=== PATIENT | male | born 1995 | race Caucasian/White ===

== ENCOUNTER 2022-08-24 21:17 | Inpatient (IN) | payer MEDICAID ==
[~2022-08-24] VITALS: Ht 165.1 cm; Wt 71.4 kg
[2022-08-24 22:22] LABS: BASOPHILS % (AUTO) 0.5 % (0.0-2.0); EOSINOPHILS % (AUTO) 2.9 % (1.0-6.0); HEMATOCRIT 46.3 % (41-53); HEMOGLOBIN 16.1 g/dL (13.5-17.5); LYMPHOCYTES # (AUTO) 1.4 K/uL (1.0-4.8); LYMPHOCYTES % (AUTO) 37.7 % (22.0-44.0); MEAN CORPUSCULAR HEMOGLOBIN 32.5 pg (26.0-34.0); MEAN CORPUSCULAR HGB CONC 34.7 G/dL (31.0-37.0); MEAN CORPUSCULAR VOLUME 94 fL (80-100); MONOCYTES # (AUTO) 0.3 K/uL (0.1-1.0); MONOCYTES % (AUTO) 6.9 % (2.0-9.0); NEUTROPHILS # (AUTO) 1.9 K/uL (1.8-7.7); PLATELET COUNT (AUTO) 218 K/uL (150-450); RED BLOOD CELL COUNT(AUTO) 4.93 MIL/uL (4.50-5.90); RED CELL DISTRIBUTION WIDTH 12.5 % (11.5-14.5)
[2022-08-24] MEDS ORDERED: QUET200T PO (22:22)
[2022-08-24 22:25] LABS: ANION GAP 7 mmol/L (8-16); CALCIUM, TOTAL 9.3 mg/dL (8.8-10.5); CARBON DIOXIDE 28 mmol/L (22-29); CHLORIDE 103 mmol/L (98-107); GLUCOSE,RANDOM 118 mg/dL (70-110); POTASSIUM 3.3 mmol/L (3.5-5.1); SODIUM SERUM 138 mmol/L (136-145); UREA NITROGEN, BLOOD 10 mg/dL (7-18)
[2022-08-24 22:31] LABS: ALANINE AMINOTRANSFERASE 41 U/L (12-78); ALBUMIN 4.3 g/dL (3.4-5.0); ALKALINE PHOSPHATASE 138 U/L (46-116); ASPARTATE AMINOTRANSFERASE 20 U/L (15-37); BILIRUBIN,TOTAL 0.5 mg/dL (0.1-1.0); TOTAL PROTEIN, SERUM 7.7 g/dL (6.4-8.2)
[2022-08-24 22:32] LABS: GLOMERULAR FILTR. RATE CALC > 60 mL/min (>60)
[2022-08-24 22:39] LABS: AMPHET/METH SCREEN,URINE NEGATIVE (NEGATIVE); BARBITURATE SCREEN, URINE NEGATIVE (NEGATIVE); BENZODIAZEPINES SCREEN,URINE NEGATIVE (NEGATIVE); CANNABINOID SCREEN,URINE NEGATIVE (NEGATIVE); COCAINE SCREEN,URINE NEGATIVE (NEGATIVE); METHADONE SCREEN, URINE NEGATIVE (NEGATIVE); OPIATE SCREEN,URINE NEGATIVE (NEGATIVE)
[2022-08-24 22:41] LABS: PHENCYCLIDINE SCREEN,URINE NEGATIVE (NEGATIVE)
[2022-08-24] MEDS ORDERED: LORazepam 2 MG/ML VIAL IM ONE (22:45)
[2022-08-24] MEDS ORDERED: DiphenhydrAMINE HCL 50 MG/ML VIAL IM ONE (22:45)
[2022-08-24] MEDS ORDERED: POTASSIUM CHLORIDE 10% 40 MEQ/30 ML LIQUID UDCUP PO ONE (22:45)
[2022-08-24] MEDS ORDERED: HALOPERIDOL LACTATE 5 MG/ML VIAL IM ONE (22:45)
[2022-08-24 23:17] LABS: COVID AG,FIA SOURCE NASOPHARYNGEAL
[2022-08-25] MEDS ORDERED: HALOPERIDOL 5 MG TABLET PO PRN (00:45)
[2022-08-25] MEDS ORDERED: ZOLPIDEM TARTRATE 10 MG TABLET PO PRN (00:45)
[2022-08-25 02:45] VITALS: BP 124/82
[2022-08-25] MEDS ORDERED: INFLUENZA VIRUS VACCINE QVS 2022-23 (6MO+)/PF 60 MCG/0.5 ML SYRINGE IM. ONE (06:15)
[2022-08-25] MEDS ORDERED: PETROLATUM,WHITE 28 GM JELLY TP PRN (06:30)
[2022-08-25] MEDS ORDERED: IBUPROFEN 400 MG TABLET PO PRN (06:30)
[2022-08-25] MEDS ORDERED: LOPERAMIDE HCL 2 MG CAPSULE PO PRN (06:30)
[2022-08-25] MEDS ORDERED: MAGNESIUM HYDROXIDE SUSPENSION 30 ML UDCUP PO PRN (06:30)
[2022-08-25] MEDS ORDERED: CloNIDine HCL 0.1 MG TABLET PO PRN (06:30)
[2022-08-25] MEDS ORDERED: ACETAMINOPHEN 325 MG TABLET PO PRN (06:30)
[2022-08-25] MEDS ORDERED: ALBUTEROL SULFATE HFA 90 MCG/PUFF 8 GM INHALER IH PRN (06:30)
[2022-08-25] MEDS ORDERED: MAG HYDROX/AL HYDROX/SIMETH ES 30 ML SUSPENSION UDCUP PO PRN (06:30)
[2022-08-25] MEDS ORDERED: NICOTINE 14 MG/24 HOUR PATCH TD PRN (06:30)
[2022-08-25] MEDS ORDERED: DOCUSATE SODIUM 100 MG CAPSULE PO PRN (06:30)
[2022-08-25] MEDS ORDERED: ONDANSETRON HCL 4 MG TABLET PO PRN (06:30)
[2022-08-25] MEDS ORDERED: GuaiFENesin/D-METHORPHAN [SUGAR-FREE] 200-20MG/10 ML SYRUP UDCUP PO PRN (06:30)
[2022-08-25 11:44] VITALS: BP 102/58
[2022-08-25] MEDS: QUEtiapine FUMARATE 25 MG TABLET PO SCH ×2 (14:10→16:50)
[2022-08-25 16:27] VITALS: BP 139/75
[2022-08-25] MEDS: QUEtiapine FUMARATE 200 MG TABLET PO SCH (20:10)
[2022-08-26 09:47] VITALS: BP 108/69
[2022-08-26] MEDS: QUEtiapine FUMARATE 25 MG TABLET PO SCH ×3 (10:40→18:24)
[2022-08-26 16:31] VITALS: BP 106/67
[2022-08-26] MEDS: QUEtiapine FUMARATE 200 MG TABLET PO SCH (20:26)
[2022-08-27] MEDS: QUEtiapine FUMARATE 25 MG TABLET PO SCH ×3 (08:29→16:20)
[2022-08-27 08:46] VITALS: BP 106/61
[2022-08-27 16:18] VITALS: BP 140/88
[2022-08-27] MEDS: LORazepam 2 MG TABLET PO PRN ×2 (16:20→20:29)
[2022-08-27] MEDS: QUEtiapine FUMARATE 200 MG TABLET PO SCH (20:43)
[2022-08-28] MEDS: QUEtiapine FUMARATE 25 MG TABLET PO SCH ×3 (08:33→16:19)
[2022-08-28 08:57] VITALS: BP 122/92
[2022-08-28] MEDS ORDERED: QUET200T PO (13:01)
[2022-08-28] MEDS ORDERED: QUET25TA PO (13:01)
[2022-08-28] MEDS ORDERED: QUET25TA36 PO (13:20)
[2022-08-28] MEDS ORDERED: QUET200T30 PO (13:20)
== END 2022-08-28 17:45 | disposition home or self-care (01) | DRG 750 ==
LOC: EMS 21:19 → 3EI 08-25 02:05
PROVIDERS: ADMIT Psychiatry & Neurology Psychiatry; ATTEND Psychiatry & Neurology Psychiatry
DX: F25.1 Schizoaffective disorder, depressive type (principal); R45.851 Suicidal ideations; E87.6 Hypokalemia; F10.129 Alcohol abuse with intoxication, unspecified; F12.10 Cannabis abuse, uncomplicated; Z20.822 Contact with and (suspected) exposure to COVID-19; F60.3 Borderline personality disorder; Z59.00 Homelessness unspecified; Z79.899 Other long term (current) drug therapy; Z56.0 Unemployment, unspecified
CPT/HCPCS: 80053; 84132; 85025; 99285; G0480; J1200; J1630; J2060